=== PATIENT | male | born 1995 | race Caucasian/White ===

== ENCOUNTER 2021-08-06 13:38 | Emergency (ER) | payer OTHER ==
[~2021-08-06] VITALS: Ht 177.8 cm; Wt 103.0 kg
[2021-08-06] MEDS ORDERED: AMOX-CLAV 875-1 EACH PO (16:02)
[2021-08-06] MEDS ORDERED: KETO10TA2 PO (16:02)
== END 2021-08-06 16:32 | disposition home or self-care (01) ==
LOC: ER 13:38 → EDBD 13:38 → ER 15:41
DX: L02.411 Cutaneous abscess of right axilla (principal)